=== PATIENT | male | born 1965 | race Caucasian/White ===

== ENCOUNTER 2016-04-16 21:29 | Emergency (ER) | payer SELFPAY | END 2016-04-16 22:54 | disposition home or self-care (01) | LOC: D.ER 21:29 | DX: T15.92XA Foreign body on external eye, part unspecified, left eye, initial encounter (principal); X58.XXXA Exposure to other specified factors, initial encounter; Y93.89 Activity, other specified; Y92.89 Other specified places as the place of occurrence of the external cause ==